=== PATIENT | female | born 1980 | race Caucasian/White ===

== ENCOUNTER → 2019-08-03 10:54 | Outpatient (CLI) | payer SELFPAY ==
--- NOTE | 2019-08-03 11:08 | ECHOD_ITS ---
Reason For Study: CARDIOMEGALY Procedure This was a 2D Doppler, Color Flow transthoracic echocardiogram. Exam performed in department. Left Ventricle Mildly dilated left ventricle. The estimated ejection fraction is 45 %. Stage 1 diastolic dysfunction. There is mild global hypokinesis of the left ventricle. Right Ventricle Normal RV size. Normal systolic function. Atria Normal left atrium. Normal right atrium. No doppler evidence for ASD. Mitral Valve There is no mitral valve stenosis. Trivial mitral valve insufficiency. Tricuspid Valve There is no tricuspid stenosis. Trivial tricuspid valve insufficiency. Unable to estimate RV systolic pressure due to insufficient tricuspid regurgitant envelope. Aortic Valve Trisinus/trileaflet aortic valve. There is no aortic stenosis. No aortic valve insufficiency. Pulmonic Valve There is no pulmonic valvular stenosis. No pulmonic valve insufficiency. Great Vessels Normal aortic root. Pericardium/Pleural No pericardial effusion. MMode/2D Measurements & Calculations LVIDd: 5.9 cm IVSd: 1.1 cm Ao root diam: 3.0 cm LVIDs: 4.3 cm LVPWd: 1.2 cm RVDd: 3.3 cm FS: 27.7 % LAV(MOD-bp): 63.5 ml LA A4 area: 17.9 cm2 LA dimension(2D): 3.4 cm LAV(MOD-bp) Indexed: 33.8 ml/m2 LAV(MOD-sp2): 72.7 ml LAV(MOD-sp4): 51.6 ml RA A4 area: 16.3 cm2 Time Measurements MV dec time: 0.14 sec Doppler Measurements & Calculations MV E max lanre: 70.5 cm/sec Lat Peak E' Lanre: 21.7 cm/sec Med Peak E' Lanre: 11.6 cm/sec MV A max lanre: 54.8 cm/sec E/E' lat: 3.2 E/E' med: 6.1 MV E/A: 1.3 Ao V2 max: 140.0 cm/sec LV V1 max: 110.9 cm/sec PA V2 max: 110.1 cm/sec Ao max P.8 mmHg LV V1 max P.9 mmHg TR max lanre: 219.7 cm/sec TR max P.3 mmHg Interpretation Summary Mildly dilated left ventricle. The estimated ejection fraction is 45 %. Stage 1 diastolic dysfunction. There is mild global hypokinesis of the left ventricle. Trivial mitral valve insufficiency. Trivial tricuspid valve insufficiency. Ordering Physician: Jh Hanley Referring Physician: Jh Hanley Performed By: Rosemary Mcdermott, OMID, RVT
== END ==
PROVIDERS: Referring Provider Physician Assistant; Visit Provider Physician Assistant
DX: I51.7 Cardiomegaly (principal)
CPT/HCPCS: 93306